=== PATIENT | female | born 2000 | race Caucasian/White ===

== ENCOUNTER 2021-03-17 07:18 | Emergency (ER) | payer OTHER, MEDICAID ==
[~2021-03-17] VITALS: Ht 165.1 cm; Wt 57.6 kg
[2021-03-17 07:28] VITALS: BP_SYST 109
[2021-03-17] MEDS ORDERED: CYCL-10 PO (08:27)
[2021-03-17] MEDS ORDERED: IBUP-1969 PO (08:27)
[2021-03-17] MEDS ORDERED: IBUPROFEN 600 MG TABLET PO ONE (08:30)
[2021-03-17 08:39] VITALS: BP_SYST 109
== END 2021-03-17 08:38 | disposition home or self-care (01) ==
LOC: SED 07:18
DX: S16.1XXA Strain of muscle, fascia and tendon at neck level, initial encounter (principal); S46.911A Strain of unspecified muscle, fascia and tendon at shoulder and upper arm level, right arm, initial encounter; V49.49XA Driver injured in collision with other motor vehicles in traffic accident, initial encounter; Y93.89 Activity, other specified; Y92.89 Other specified places as the place of occurrence of the external cause; Y99.8 Other external cause status
CPT/HCPCS: 99283